=== PATIENT | male | born 1970 | race Hispanic/Latino ===

== ENCOUNTER 2024-12-28 09:23 | Emergency (ER) | payer SELFPAY ==
[~2024-12-28] VITALS: Ht 167.6 cm; Wt 74.8 kg
[2024-12-28] MEDS ORDERED: OXYCODONE/APAP 5/325 TAB PO ONE (09:45)
[2024-12-28] MEDS ORDERED: KETOROLAC TROMETHAMINE 15 MG/ML VIAL IM ONE (09:45)
[2024-12-28] MEDS ORDERED: CYCLOBENZAPRINE HCL 10 MG TAB PO ONE (09:45)
--- OUTSIDE RECORDS SUMMARY | 2024-12-28 10:40 | XMS ---
PreManage Notification: KIESHA LOMELI Security It Service Technician Events No recent Security Events currently on file CRITERIA MET - [facility] - 2 Visits in 30 Days CARE PROVIDERS There are no care providers on record at this time. Gretchen has no Care Guidelines for this patient. Mat[facility] V[facility] (12 MO.) [facility] TOTAL 2 NOTE: Visits indicate total known visits. ED/C VISIT TRACKING (12 MO.) 12/28/2024 09:24 [facility] TYPE: Emergency COMPLAINT: - FLANK PAIN 12/28/2024 07:54 [facility] [place] TYPE: Emergency COMPLAINT: - LEFT HIP PAIN DIAGNOSES: - LEFT HIP PAIN INPATIENT VISIT TRACKING (12 MO.) No inpatient visits to display in this time frame [email or web address]
[2024-12-28] MEDS ORDERED: PERCOCET 5-3251 EACH PO (11:30)
[2024-12-28] MEDS ORDERED: IBU600 MG PO (11:30)
[2024-12-28] MEDS ORDERED: CYCLOBENZAPRINE10 MG PO (11:30)
[2024-12-28 11:48] VITALS: BP 173/115
== END 2024-12-28 11:49 | disposition home or self-care (01) ==
LOC: ED 09:23
DX: M54.42 Lumbago with sciatica, left side (principal)
CPT/HCPCS: 96372; 99283; J1885